=== PATIENT | female | born 1945 | race Caucasian/White ===

== ENCOUNTER → 2016-12-28 | Outpatient (CLI) | payer OTHER | LOC: GIMAGING 16:27 | PROVIDERS: ATTEND Internal Medicine | DX: R91.8 Other nonspecific abnormal finding of lung field (principal) | CPT/HCPCS: 71020-PO ==

== ENCOUNTER → 2017-05-22 | Outpatient (CLI) | payer OTHER | LOC: FIMAGING 08:35 | PROVIDERS: ATTEND Internal Medicine Endocrinology, Diabetes & Metabolism | DX: E05.20 Thyrotoxicosis with toxic multinodular goiter without thyrotoxic crisis or storm (principal) ==

== ENCOUNTER 2017-12-19 11:25 | Outpatient (CLI) | payer OTHER ==
[2017-12-19] MEDS ORDERED: PROPOFOL 200 MG/20 ML VIAL ONE (13:02)
[2017-12-19] MEDS ORDERED: PROPOFOL/EMULSION 500 MG/50 ML BOTTLE IV ONE (13:02)
[2017-12-19] MEDS ORDERED: ALBUTEROL 3 ML DEYVIAL IH PRN (14:43)
[2017-12-19] MEDS ORDERED: NALOXONE HCL 0.4 MG/ML INJ IVP PRN (14:43)
[2017-12-19] MEDS ORDERED: fentaNYL 100 MCG/2 ML INJ ONE (14:47)
--- NOTE | 2017-12-19 14:49 | PDANEPAE ---
ANE History of Present Illness here for MRI ANE Past Medical History - Cardiovascular History Hx Hypertension: No Hx Arrhythmias: No Hx Chest Pain: No Hx Coronary Artery / Peripheral Vascular Disease: No Hx CHF / Valvular Disease: No Cardiovascular History Comment: borderline HTN; palpitations r/t hyperthyroid - Pulmonary History Hx COPD: No Hx Asthma/Reactive Airway Disease: No Hx Recent Upper Respiratory Infection: No Hx Oxygen in Use at Home: Yes O2 in Use at Home (L/minute): 2L @ NOC Hx Sleep Apnea: No - Neurologic History Hx Cerebrovascular Accident: No Hx Seizures: No Hx Dementia: No - Endocrine History Hx Diabetes: Yes Obesity: moderate Endocrine History Comment: hyperthyroid - Renal History Hx Renal Disorders: No - Liver History Hx Hepatic Disorders: No - Neurological & Psychiatric Hx Hx Neurological and Psychiatric Disorders: No - Cancer History Hx Cancer: Yes Cancer History Comment: skin cancers - Congenital Disorder History Hx Congenital Disorders: No - GI History Hx Gastrointestinal Disorders: No Gastrointestinal History Comment: c-diff - Other Health History Other Health History: cataract R eye; easy bruising and sensitive skin due to steroids - Chronic Pain History Chronic Pain: Yes - Surgical History Prior Surgeries: 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, tibia-osteotomy; knee scopes; ovarian cyst removal; gall bladder; rotator cuff; right full knee replacement-no metal ( ceramic and plastic); hysterectomy ANE Review of Systems Review of systems is: negative Review of Systems: - Exercise capacity Exercise capacity: <4 METS, >=4 METS METS (RN): 3 METS ANE Patient History - Allergies Allergies/Adverse Reactions: gabapentin Allergy (Severe, Verified 12/14/17 17:22) iodine [Iodine] Allergy (Severe, Verified 12/14/17 17:22) lisinopril Allergy (Severe, Verified 12/14/17 17:22) nitrofurantoin [From Macrobid] Allergy (Severe, Verified 12/14/17 17:22) nitrofurantoin macrocrystalline [From Macrobid] Allergy (Severe, Verified 17:22) oxymorphone HCl [From Opana] Allergy (Severe, Verified 12/14/17 17:22) sulfamethoxazole [From Bactrim] Allergy (Severe, Verified 12/14/17 17:22) trimethoprim [From Bactrim] Allergy (Severe, Verified 12/14/17 17:22) cefdinir [From Omnicef] Allergy (Mild, Verified 12/14/17 17:22) cephalexin monohydrate [From Keflex] Allergy (Mild, Verified 12/14/17 17:22) doxycycline [Doxycycline] Allergy (Mild, Verified 12/14/17 17:22) epinephrine [Epinephrine] Allergy (Mild, Verified 12/14/17 17:22) moxifloxacin HCl [From Avelox] Allergy (Mild, Verified 12/14/17 17:22) ranitidine HCl [From Zantac] Allergy (Mild, Verified 12/14/17 17:22) ciprofloxacin [From Cipro] Allergy (Unknown, Verified 12/14/17 17:22) ciprofloxacin HCl [From Cipro] Allergy (Unknown, Verified 12/14/17 17:22) enoxaparin sodium [From Lovenox] Allergy (Unknown, Verified 12/14/17 17:22) fentanyl [Fentanyl] Allergy (Unknown, Verified 12/19/17 14:47) Other-Enter Comments amitriptyline Allergy (Verified 12/14/17 17:22) Gadolinium-Containing Contrast Medi Allergy (Verified 12/14/17 17:22) lamotrigine Allergy (Verified 12/14/17 17:22) losartan Allergy (Verified 12/14/17 17:22) midazolam [From Versed] Allergy (Verified 12/14/17 17:22) morphine Allergy (Verified 12/14/17 17:22) "ALL METALS" Allergy (Mild, Uncoded 12/14/17 17:22) "MRI'S W/ CONTRAST" Allergy (Mild, Uncoded 12/14/17 17:22) "ALL CILLINS" Allergy (Unknown, Uncoded 12/14/17 17:22) - Home Medications Home medications: home medication list seen and reviewed Home Medications: Clotrimazole 01/25/10 [Last Taken Unknown] Depo-Estradiol 01/25/10 [Last Taken Unknown] Dilaudid 4 mg PO 01/25/10 [Last Taken Unknown] Ibuprofen 75 mg PO 01/25/10 [Last Taken Unknown] Lopid 600 mg PO BID 01/25/10 [Last Taken Unknown] Zovirax 200 mg 800 mg 01/25/10 [Last Taken Unknown] Cyanocobalamin (Vitamin B-12) [Vitamin B-12] 2,500 mcg SL DAILY 12/14/17 [Last Taken Unknown] Omeprazole 40 mg PO DAILY 12/14/17 [Last Taken Unknown] Potassium Chloride [Klor-Con 10] 10 meq PO DAILY 12/14/17 [Last Taken Unknown] Prednisone 7 mg PO DAILY 12/14/17 [Last Taken Unknown] Sulindac [Clinoril 200 MG (*)] 200 mg PO BID 12/14/17 [Last Taken Unknown] chlordiazePOXIDE [Librium 5 mg (*)] HS PRN 12/14/17 [Last Taken Unknown] - Smoking Hx Smoking Status: Never smoked ANE Labs/Vital Signs - Vital Signs Vital Signs: reviewed preoperatively; see RN documention for details Height: 170.18 cm Weight: 108.862 kg ANE Physical Exam - Airway Neck exam: FROM Mallampati Score: Class 1 - Pulmonary Pulmonary: no respiratory distress - Cardiovascular Cardiovascular: regular rate and rhythym - ASA Status ASA Status: III ANE Anesthesia Plan Anesthesia Plan: GA w LMA
--- NOTE | 2017-12-19 14:49 | POSTANESTH ---
Post Anesthetic Evaluation Cardiovascular Status: Normal, Stable Respiratory Status: Normal, Stable Level of Consciousness/Mental Status: Can Participate in Eval Pain Control: Adequate, Prn Tx Ordered Nausea/Vomiting Control: Adequate, Prn Tx Ordered Complications Possibly Related to Anesthesia: None Noted
[2017-12-19] MEDS: fentaNYL 100 MCG/2 ML INJ IVP PRN ×2 (14:52→15:08)
[2017-12-19 16:29] VITALS: BP 110/65; RESP 18; O2SAT 85
[2017-12-19 16:53] VITALS: TEMP 98.1
== END 2017-12-19 16:20 | disposition home or self-care (01) ==
LOC: FIMAGING 11:25
PROVIDERS: ATTEND Physical Medicine & Rehabilitation
DX: M47.897 Other spondylosis, lumbosacral region (principal); M43.17 Spondylolisthesis, lumbosacral region; M99.73 Connective tissue and disc stenosis of intervertebral foramina of lumbar region; M48.061 Spinal stenosis, lumbar region without neurogenic claudication; M41.86 Other forms of scoliosis, lumbar region
CPT/HCPCS: 72148; J2704; J3010